=== PATIENT | female | born 1955 | race Caucasian/White ===

== ENCOUNTER 2016-05-19 13:22 | Emergency (ER) | payer MEDICARE, MEDICAID | END 2016-05-19 15:22 | disposition home or self-care (01) | DX: R10.9 Unspecified abdominal pain (principal); M20.42 Other hammer toe(s) (acquired), left foot; M21.612 Bunion of left foot; Z87.442 Personal history of urinary calculi; F17.200 Nicotine dependence, unspecified, uncomplicated; I10 Essential (primary) hypertension ==

== ENCOUNTER 2019-02-10 11:02 | Emergency (ER) | payer MEDICARE, MEDICAID ==
--- NOTE | 2019-02-10 12:02 | XRAY Report ---
Reason: worsening pain Procedure Date: 02/10/2019 Accession Number: [id number] / [id number] Procedure: XR - Foot 3 View LT CPT Code: Final Report FULL RESULT: EXAM: LEFT FOOT RADIOGRAPHY EXAM DATE: 02/10/2019 11:26 AM. CLINICAL HISTORY: Worsening Pain. History of broken second toe. COMPARISON: None. TECHNIQUE: 3 views. FINDINGS: Bones: The first and second digits overlap limiting detail. Flexion of the digits on the lateral view and overlap limits detail. Degenerative spurring at the left first MTP joint. No acute fracture or bony lesions. Posterior and plantar calcaneal spurs. No periosteal reaction. Joints: Degenerative changes of the left first MTP joint. Degenerative changes of the DIP and PIP joints. There is hallux valgus. Mild degenerative changes of the left midfoot. Soft Tissues: No radiopaque foreign bodies. IMPRESSION: 1. No acute osseous abnormalities. 2. Hallux valgus and left first MTP, DIP and PIP joints and left mid joint degenerative changes. RADIA
[2019-02-10 12:16] VITALS: BP 146/97
--- NOTE | 2019-02-12 15:22 | ED Physician Documentation ---
History of Present Illness - Stated complaint Stated Complaint: LT FOOT PX - Chief complaint Chief Complaint: Ext Problem - Additonal information Additional information: This is a 63-year-old female presents with pain in her left foot. She said she broke her toe in the past, and this seemed to heal without issue, but for several months now when she walks she will have some pain on the bottom of her foot which is described as a stretching or burning. She denies any new acute trauma to the foot. Review of Systems Constitutional: denies: Fever Musculoskeletal: reports: Extremity pain PD PAST MEDICAL HISTORY - Past Medical History Past Medical History: Yes Cardiovascular: Hypertension Respiratory: None Endocrine/Autoimmune: HyPOthyroidism GI: Diverticulitis COPRA SAMPLER: None : None HEENT: None Psych: Depression, Anxiety Musculoskeletal: Fibromyalgia Derm: None - Past Surgical History Past Surgical History: Yes Ortho: Spine surgery, Other - Present Medications Home Medications: Ambulatory Orders Medication Instructions Recorded Confirmed Meloxicam [Mobic] 7.5 mg PO BIDWM PRN #15 tablet 05/19/16 FLUoxetine [PROzac] 10 mg PO DAILY 02/10/19 02/10/19 Levothyroxine Sodium [Synthroid] 25 mcg PO 02/10/19 02/10/19 - Allergies Allergies/Adverse Reactions: Allergies Allergy/AdvReac Type Severity Reaction Status Date / Time No Known Drug Allergies Allergy Verified 02/10/19 11:12 - Social History Does the pt smoke?: Yes Smoking Status: Current every day smoker Does the pt drink ETOH?: No Does the pt have substance abuse?: No - Immunizations Immunizations are current?: Yes - POLST Patient has POLST: No PD ED PE NORMAL - General General: Alert and oriented X 3 - HEENT HEENT: Atraumatic - Respiratory Respiratory: No respiratory distress - Extremities Extremities: Other (Left foot is atraumatic in appearance. There is some tenderness along the sole of the foot and some tenderness in On the calcaneus on the bottom of foot. Patient able to wiggle all toes, sensation light touch is intact, capillary refill is brisk) Results - Vitals Vitals: Oxygen O2 Source Room air - Rads (name of study) X-ray foot, left Radiology: Other (No acute osseous abnormality) PD MEDICAL DECISION MAKING - ED course Complexity details: considered differential (Strain, sprain, plantar fasciitis, fractureContusion) ED course: Patient's x-ray shows degenerative changes without acute osseous abnormality and her description of the pain as well as her exam fits very well with plantar fasciitis. I discussed rest ice and supportive care and primary care follow-up. I also discussed that if she having worsening symptoms she may need repeat imaging in the future. Return precautions were reviewed and patient was discharged home Departure - Departure Disposition: 01 Home, Self Care Clinical Impression: Foot pain, left Condition: Good Follow-Up: Teresa Mendoza DPM [Provider Admit Priv/Credential] - (Call to schedule an appt) Comments: We do not see signs of a fracture within your foot. Your pain may be due to strain of the foot Or irritation of the fascia. You may take ibuprofen and Tylenol for pain, and avoid overuse of the foot if possible. 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 Return to the emergency department if you have worsening symptoms such as signs of infection. Discharge Date/Time: 02/10/19 12:16
== END 2019-02-10 12:16 | disposition home or self-care (01) ==
LOC: ED 11:02
DX: M79.672 Pain in left foot (principal); I10 Essential (primary) hypertension; F17.200 Nicotine dependence, unspecified, uncomplicated
CPT/HCPCS: 99282; 99283

== ENCOUNTER 2019-03-21 09:53 | Outpatient (CLI) | payer MEDICARE, MEDICAID ==
--- NOTE | 2019-03-24 10:15 | Mammography Report ---
Reason: ROUTINE MAMMO Procedure Date: 03/21/2019 Accession Number: [id number] / [id number] Procedure: MGN - Screening Mammo Dig Bilat CPT Code: Final Report FULL RESULT: EXAM: Screening Mammo Dig Bilat DATE: 03/21/2019 10:13 AM CLINICAL HISTORY: Routine screening. New baseline examination. TECHNIQUE: (B) - Bilateral CC and MLO views were obtained. COMPARISON: None PARENCHYMAL PATTERN: (A) - The breasts demonstrate scattered fibroglandular densities bilaterally. FINDINGS: There are no suspicious masses, calcifications, or areas of distortion. IMPRESSION: Negative examination. BI-RADS category 1. RECOMMENDATION: (ANNUAL) - Recommend routine annual screening mammography. BI-RADS CATEGORY: (1) - Negative. STANDARD QUALIFYING STATEMENTS: 1. This examination was not reviewed with the aid of Computer-Aided Detection (CAD). 2. A negative or benign imaging report should not preclude biopsy if clinically suspicious findings are present. 3. Dense breasts may obscure an underlying neoplasm. 4. This examination was reviewed without the aid of 3D breast imaging (tomosynthesis).
== END 2019-03-21 09:54 | disposition home or self-care (01) ==
LOC: DI.N 09:53
PROVIDERS: ATTEND Family Medicine
DX: Z12.31 Encounter for screening mammogram for malignant neoplasm of breast (principal)
CPT/HCPCS: 77067